=== PATIENT | male | born 1940 | race Caucasian/White ===

== ENCOUNTER 2017-09-22 04:20 | Emergency (ER) | payer MEDICARE ==
[~2017-09-22] VITALS: Ht 182.9 cm; Wt 83.9 kg
[~2017-09-22 04:20] MED LIST: AMLO10 PO; ASPI325; ASPI325 PO; CLOP75 PO; ESOM20 PO; FAMO20 PO; FENO54 PO; FLUV20; IBUP600 PO; ISODIN10 PO; METO100ER PO; METO50ER PO; NITR.4SL SL; OLME20 PO; OXYACE5T PO; RAMI2.5; RAMI5 PO; RANI150 PO; RANO500T PO; ROSU10TA PO; TIOT18 INH; TRAV.004OP OD; UBID100 PO; VITORIN
[2017-09-22 04:37] LABS: BASOPHILS ABSOLUTE AUTO 0.03 K/mm3 (0.00-0.23); BASOPHILS PERCENT AUTO 0 % (0-2); EOSINOPHILS PERCENT AUTO 1 % (0-6); Hematocrit 45.9 % (37.0-53.0); Hemoglobin 15.8 g/dL (13.5-17.5); IMMATURE GRAN ABSOLUTE AUTO 0.04 K/mm3 (0.00-0.10); IMMATURE GRAN PERCENT AUTO 0 % (0-1); LYMPHOCYTES ABSOLUTE AUTO 2.08 K/mm3 (0.84-5.20); LYMPHOCYTES PERCENT AUTO 22 % (21-46); MONOCYTES ABSOLUTE AUTO 0.87 K/mm3 (0.16-1.47); MONOCYTES PERCENT AUTO 9 % (4-13); Mean Corpuscular HGB 30.3 pg (26.0-34.0); Mean Corpuscular HGB Conc 34.4 g/dL (31.5-36.5); Mean Corpuscular Volume 88 fL (80-100); Mean Platelet Volume 9.6 fL (9.1-12.4); NEUTROPHILS PERCENT AUTO 67 % (41-73); Platelet Count 252 K/mm3 (150-400); RDW Coefficient Variation 13.2 % (11.7-14.2); RDW Standard Deviation 42.6 fL (35.1-46.3); Red Blood Cell Count 5.21 M/mm3 (4.30-5.90); White Blood Cell Count 9.52 K/mm3 (4.00-11.30)
[2017-09-22] MEDS ORDERED: ASPI81CH (04:41)
[2017-09-22 04:59] LABS: Alanine Aminotransfer (ALT/SGP 35 U/L (12-78); Albumin, Blood 3.5 g/dL (3.4-5.0); Albumin/Globulin Ratio 1.1 (0.8-1.8); Alk Phos 47 U/L (50-136); Anion Gap 7 mmol/L (6-16); Aspartate Aminotrans (AST/SGOT 20 U/L (12-37); Bilirubin, Total 0.4 mg/dL (0.1-1.0); Blood Urea Nitrogen 13 mg/dL (8-24); Bun/Creatinine Ratio 13.3 (12.0-20.0); CO2, Blood 26 mmol/L (21-32); Calcium, Blood 8.6 mg/dL (8.5-10.1); Chloride, Blood 107 mmol/L (98-108); Creatinine, Blood 0.98 mg/dL (0.60-1.20); Globulin, Blood 3.3 g/dL (2.2-4.0); Glomerular Filtration Rate >60 (60-); Glucose, Blood 113 mg/dL (70-99); Potassium, Blood 4.1 mmol/L (3.5-5.5); Sodium, Blood 140 mmol/L (136-145); Total Protein, Blood 6.8 g/dL (6.4-8.2); Troponin I <0.015 ng/mL (0.000-0.040)
== END 2017-09-22 08:46 | disposition home or self-care (01) ==
LOC: ER 04:20
PROVIDERS: Emergency Medicine
DX: R07.2 Precordial pain (principal); I25.10 Atherosclerotic heart disease of native coronary artery without angina pectoris; Z88.5 Allergy status to narcotic agent; Z79.899 Other long term (current) drug therapy; Z79.82 Long term (current) use of aspirin; I25.2 Old myocardial infarction; Z87.891 Personal history of nicotine dependence
CPT/HCPCS: 71046; 80053; 83690; 84484; 85025; 99283

== ENCOUNTER → 2017-11-25 | Outpatient (CLI) | payer MEDICARE ==
[~2017-11-25] MED LIST changes: +ASPI81CH
== END ==
LOC: PLD 10:09 → LAB SHORT 10:09
DX: D48.5 Neoplasm of uncertain behavior of skin (principal)
CPT/HCPCS: 88305

== ENCOUNTER → 2018-07-07 | Outpatient (CLI) | payer MEDICARE ==
[~2018-07-07] MED LIST changes: +ASPI325EC PO; -ASPI81CH; +ASPI81CH PO; +DOCU100 PO; +ISOMON20 PO; +Isosorbide Mono60 MG PO; +ROXICODONE5 MG PO
== END | disposition home or self-care (01) ==
LOC: PLD 10:22 → LAB SHORT 10:22
DX: C44.41 Basal cell carcinoma of skin of scalp and neck (principal)
CPT/HCPCS: 88305

== ENCOUNTER → 2018-07-28 | Outpatient (CLI) | payer MEDICARE | END | disposition home or self-care (01) | LOC: PLD 14:23 → LAB SHORT 14:23 | DX: C44.41 Basal cell carcinoma of skin of scalp and neck (principal) | CPT/HCPCS: 88305 ==

== ENCOUNTER 2019-06-16 07:37 | Day surgery (SDC) | payer MEDICARE ==
[~2019-06-16] VITALS: Ht 182.9 cm; Wt 88.2 kg
[~2019-06-16 07:37] MED LIST changes: +AMLODIPINE BESY10 MG PO; +Aspirin EC81 MG PO; +Benicar40 MG PO; +COENZYME Q10100 MG PO; +Crestor40 MG PO; +Isosorbide Mono30 MG PO
[2019-06-16] MEDS ORDERED: OLME20 (08:10)
== END 2019-06-16 09:58 | disposition home or self-care (01) ==
LOC: ORSCSDS 07:37
PROVIDERS: Podiatrist Foot & Ankle Surgery
PROC: 0JNQ0ZZ Release Right Foot Subcutaneous Tissue and Fascia, Open Approach (ICD-10-PCS; principal; 2019-06-16 09:00)
DX: M72.2 Plantar fascial fibromatosis (principal); I10 Essential (primary) hypertension; I25.10 Atherosclerotic heart disease of native coronary artery without angina pectoris; J44.9 Chronic obstructive pulmonary disease, unspecified; I25.2 Old myocardial infarction; Z87.891 Personal history of nicotine dependence; K21.9 Gastro-esophageal reflux disease without esophagitis; Z79.899 Other long term (current) drug therapy
CPT/HCPCS: J0171; J0690; J2250; J3010; J7120

== ENCOUNTER → 2019-07-08 | Outpatient (CLI) | payer MEDICARE ==
[~2019-07-08] MED LIST changes: +OLME20
[2019-07-11 06:20] LABS: Stool Occult Bld Immuno 1 Negative (NEGATIVE); Stool Occult Bld Immuno 2 Negative (NEGATIVE)
== END | disposition home or self-care (01) ==
LOC: LAB SHORT 18:35 → LAB 18:35 → LAB FUT 06-23 14:20
PROVIDERS: Internal Medicine Gastroenterology
DX: Z12.11 Encounter for screening for malignant neoplasm of colon (principal); K57.30 Diverticulosis of large intestine without perforation or abscess without bleeding
CPT/HCPCS: G0328

== ENCOUNTER → 2019-07-11 | Outpatient (CLI) | payer MEDICARE | END | disposition home or self-care (01) | LOC: PLD 11:37 → LAB SHORT 11:37 | DX: C44.41 Basal cell carcinoma of skin of scalp and neck (principal); B07.9 Viral wart, unspecified | CPT/HCPCS: 88305 ==

== ENCOUNTER → 2019-07-31 | Outpatient (CLI) | payer MEDICARE | END | disposition home or self-care (01) | LOC: PLD 08:47 → LAB SHORT 08:47 | DX: C44.41 Basal cell carcinoma of skin of scalp and neck (principal) | CPT/HCPCS: 88305 ==

== ENCOUNTER → 2019-10-03 | Outpatient (CLI) | payer MEDICARE | END | disposition home or self-care (01) | LOC: PLD 11:59 → LAB SHORT 11:59 | DX: B00.1 Herpesviral vesicular dermatitis (principal) | CPT/HCPCS: 88305 ==

== ENCOUNTER 2020-11-10 04:43 | Inpatient (IN) | payer MEDICARE ==
[~2020-11-10] VITALS: Ht 182.9 cm; Wt 84.0 kg
[~2020-11-10 04:43] MED LIST changes: +AMOCLA875 PO; +VALSARTAN80 MG PO
[2020-11-10 05:21] LABS: BASOPHILS ABSOLUTE AUTO 0.03 K/mm3 (0.00-0.23); BASOPHILS PERCENT AUTO 0 % (0-2); EOSINOPHILS PERCENT AUTO 0 % (0-6); Hematocrit 41.6 % (37.0-53.0); Hemoglobin 14.6 g/dL (13.5-17.5); IMMATURE GRAN ABSOLUTE AUTO 0.09 K/mm3 (0.00-0.10); IMMATURE GRAN PERCENT AUTO 1 % (0-1); LYMPHOCYTES ABSOLUTE AUTO 0.94 K/mm3 (0.84-5.20); LYMPHOCYTES PERCENT AUTO 7 % (21-46); MONOCYTES ABSOLUTE AUTO 1.21 K/mm3 (0.16-1.47); MONOCYTES PERCENT AUTO 8 % (4-13); Mean Corpuscular HGB 29.9 pg (26.0-34.0); Mean Corpuscular HGB Conc 35.1 g/dL (31.5-36.5); Mean Corpuscular Volume 85 fL (80-100); Mean Platelet Volume 10.5 fL (9.1-12.4); NEUTROPHILS PERCENT AUTO 84 % (41-73); Platelet Count 267 K/mm3 (150-400); RDW Coefficient Variation 12.5 % (11.7-14.2); RDW Standard Deviation 38.9 fL (35.1-46.3); Red Blood Cell Count 4.88 M/mm3 (4.30-5.90); White Blood Cell Count 14.57 K/mm3 (4.00-11.30)
[2020-11-10 05:48] LABS: Alanine Aminotransfer (ALT/SGP 35 U/L (12-78); Albumin, Blood 2.7 g/dL (3.4-5.0); Albumin/Globulin Ratio 0.7 (0.8-1.8); Alk Phos 68 U/L (50-136); Anion Gap 8 mmol/L (6-16); Aspartate Aminotrans (AST/SGOT 27 U/L (12-37); Bilirubin, Total 0.8 mg/dL (0.1-1.0); Blood Urea Nitrogen 17 mg/dL (8-24); Bun/Creatinine Ratio 17.7 (12.0-20.0); CO2, Blood 22 mmol/L (21-32); Calcium, Blood 8.2 mg/dL (8.5-10.1); Chloride, Blood 103 mmol/L (98-108); Creatinine, Blood 0.96 mg/dL (0.60-1.20); Glomerular Filtration Rate >60 (60-); Glucose, Blood 148 mg/dL (70-99); Potassium, Blood 3.6 mmol/L (3.5-5.5); Sodium, Blood 133 mmol/L (136-145); Total Protein, Blood 6.7 g/dL (6.4-8.2)
[2020-11-10 06:10] LABS: SARS-Cov-2 (COVID-19) PCR, MMC NEGATIVE (NEGATIVE)
[2020-11-10 07:15] LABS: Source, Urine Voided
[2020-11-10 07:17] LABS: Appearance, Urine Clear (Clear); Bilirubin, Urine Neg (Neg); Blood, Urine 2+ (Neg); Color, Urine Yellow (P-Yellow); Glucose Qualitative, Urine Neg (Neg); Ketones, Urine Neg (Neg); Leukocyte Esterase, Urine Neg (Neg); Nitrite, Urine Neg (Neg); Protein, Urine 2+ (Neg); Urobilinogen, Urine 3+ (Normal)
[2020-11-10 07:31] LABS: Bacteria Not Seen /hpf; Red Blood Cells, Urine 0-2 /hpf (0-2); Squamous Epithelial Cells Few /hpf (Few); White Blood Cells, Urine 0-2 /hpf (0-5)
--- NOTE | 2020-11-10 18:04 | NUR ---
SHIFT SUMMARY PATIENT ADMITTED TO THE FLOOR EARLY THIS SHIFT. PATIENT ALERT AND ORIENTED, INDEPENDENT IN THE ROOM. PATIENT REPORTS ONLY OCCASIONAL MINOR CHEST PAIN THIS SHIFT. PATIENT ON MULTIPLE ANTIBIOTICS FOR PNEUMONIA. PATIENT BECOMES SHORT OF BREATH WITH ACTIVITY. PATIENT SLEPT MUCH OF THIS SHIFT, AFTER ARRIVING TO THE ER EARLY IN THE MORNING. PATIENT'S IN THE ROOM AT ADMISSION, THEN AGAIN DURING VISITING HOURS THIS AFTERNOON. PATIENT CONTINUES TO DENY CHEST PAIN AT THIS TIME. PATIENT CURRENTLY SITTING UP EATING DINNER.
--- NOTE | 2020-11-10 19:34 | NUR ---
AWAKE. LAYING IN BED. COOPERATIVE. CALL LIGHT IN REACH
--- NOTE | 2020-11-11 03:46 | NUR ---
EXPLOSIVES ENGINEER SUMMARY RECEIVED TYLENOL PO FOR FEVER AND HEADACHE AT , MED EFFECTIVE, BOTH WITH THE FEVER AND WITH THE HEADACHE WELL. CURRENTLY RESTING QUIETLY WITHOUT VOICED CHEST PAIN. NO NOTED S/S DISTRESS OF THIS WRITING, WILL CONTINUE TO MONITOR. CALL LIGHT IN REACH. MED TELE SINUS RHYTHM WITH PACS.
[2020-11-11 05:48] LABS: BASOPHILS ABSOLUTE AUTO 0.02 K/mm3 (0.00-0.23); BASOPHILS PERCENT AUTO 0 % (0-2); EOSINOPHILS ABSOLUTE AUTO 0.01 K/mm3 (0.00-0.68); EOSINOPHILS PERCENT AUTO 0 % (0-6); Hematocrit 39.7 % (37.0-53.0); IMMATURE GRAN ABSOLUTE AUTO 0.07 K/mm3 (0.00-0.10); IMMATURE GRAN PERCENT AUTO 1 % (0-1); LYMPHOCYTES ABSOLUTE AUTO 1.07 K/mm3 (0.84-5.20); LYMPHOCYTES PERCENT AUTO 8 % (21-46); MONOCYTES ABSOLUTE AUTO 1.24 K/mm3 (0.16-1.47); MONOCYTES PERCENT AUTO 10 % (4-13); Mean Corpuscular HGB Conc 35.3 g/dL (31.5-36.5); Mean Corpuscular Volume 85 fL (80-100); Mean Platelet Volume 10.9 fL (9.1-12.4); NEUTROPHILS ABSOLUTE AUTO 10.62 K/mm3 (1.96-9.15); NEUTROPHILS PERCENT AUTO 82 % (41-73); Platelet Count 281 K/mm3 (150-400); RDW Coefficient Variation 12.6 % (11.7-14.2); RDW Standard Deviation 39.4 fL (35.1-46.3); Red Blood Cell Count 4.66 M/mm3 (4.30-5.90); White Blood Cell Count 13.03 K/mm3 (4.00-11.30)
[2020-11-11 05:59] LABS: Anion Gap 9 mmol/L (6-16); Blood Urea Nitrogen 15 mg/dL (8-24); Bun/Creatinine Ratio 16.3 (12.0-20.0); CO2, Blood 22 mmol/L (21-32); Calcium, Blood 8.1 mg/dL (8.5-10.1); Chloride, Blood 105 mmol/L (98-108); Creatinine, Blood 0.92 mg/dL (0.60-1.20); Glomerular Filtration Rate >60 (60-); Glucose, Blood 116 mg/dL (70-99); Sodium, Blood 136 mmol/L (136-145)
--- NOTE | 2020-11-11 18:33 | NUR ---
up moving in room, using calllight appropriatly to let staff know needs and ask for assistance, ebonie campbell dr in to assess, ls remain diminished abx infused with no s/sx of infection or infiltration in new iv started on l arm, will continue to nonitor and treat until share bsr with nurse and pt
--- NOTE | 2020-11-12 04:43 | NUR ---
SHIFT SUMMARY PATIENT FOUND TO BE A PLEASANT GENTLEMAN WHO IS A&OX4. NO PAIN OR DISTRESS NOTED UPON ASSESSMENT. FEELS MUCH BETTER THAN DAY BEFORE PER REPORT. AFEBRILE. TECHINAL DIFFICULTIES WITH TELE BOX BUT NSR IN THE 80'S MOST OF SHIFT. VSS. ON RA. UP IND IN ROOM AND VOIDING WITHOUT ISSUE. TOLERATING CARDIAC DIET. STATES HE IS READY TO GO HOME. NO CONCERNS AT THIS TIME. WILL CONTINUE TO MONITOR UNTIL REPORT GIVEN TO EV RN.
[2020-11-12] MEDS ORDERED: Acetaminophen325 M1 PO (09:28)
[2020-11-12] MEDS ORDERED: AZIT250 PO (09:29)
[2020-11-12] MEDS ORDERED: CEFP200 PO (09:30)
--- NOTE | 2020-11-12 12:29 | NUR ---
PATIENT DISCHARGED TO HOME WITH SPOUSE. IV SALINE LOCK AND TELEMETRY REMOVED WITHOUT INCIDENT. VERBALIZED UNDERSTANDING OF D/C INSTRUCTIONS, GIVEN PRINTED EDUCATION ABOUT NEW MEDICATIONS, DISCUSSED HOLD PARAMETERS FOR BP MEDS. OFF UNIT VIA W/C AT 1033 WITH FAMILY. NO BELONGINGS LEFT BEHIND IN ROOM.
== END 2020-11-12 10:33 | disposition home or self-care (01) | DRG 871 ==
LOC: ER 04:43 → MEDS 07:57
PROVIDERS: Emergency Medicine; ADMIT Internal Medicine
DX: A41.9 Sepsis, unspecified organism (principal); J18.9 Pneumonia, unspecified organism; E87.1 Hypo-osmolality and hyponatremia; J90 Pleural effusion, not elsewhere classified; I25.10 Atherosclerotic heart disease of native coronary artery without angina pectoris; Z20.822 Contact with and (suspected) exposure to COVID-19; Z96.652 Presence of left artificial knee joint; Z88.5 Allergy status to narcotic agent; I25.2 Old myocardial infarction; Z90.79 Acquired absence of other genital organ(s); Z98.890 Other specified postprocedural states; Z95.828 Presence of other vascular implants and grafts; Z98.41 Cataract extraction status, right eye; Z87.891 Personal history of nicotine dependence; Z79.82 Long term (current) use of aspirin; Z79.899 Other long term (current) drug therapy
CPT/HCPCS: 36415; 71045; 71046; 71260; 80048; 80053; 81001; 83605; 84145; 84484; 85025; 87040; 93005; 93010; 96365; 96366; 96367; 99285-25; A9270; J0696; J1650; J2543; J3370; J7050; Q9967; U0004

== ENCOUNTER → 2021-07-03 | Outpatient (CLI) | payer MEDICARE ==
[~2021-07-03] MED LIST changes: +AZIT250 PO; +Acetaminophen325 M1 PO; +CEFP200 PO
== END | disposition home or self-care (01) ==
LOC: LAB 11:24 → LAB SHORT 11:24 → PLD 11:24
DX: L30.8 Other specified dermatitis (principal)
CPT/HCPCS: 88305

== ENCOUNTER → 2021-08-21 | Outpatient (CLI) | payer MEDICARE | END | disposition home or self-care (01) | LOC: LAB SHORT 11:10 → LAB 11:10 | DX: C44.41 Basal cell carcinoma of skin of scalp and neck (principal); C44.212 Basal cell carcinoma of skin of right ear and external auricular canal | CPT/HCPCS: 88305 ==

== ENCOUNTER 2021-09-04 08:38 | Emergency (ER) | payer MEDICARE ==
[~2021-09-04] VITALS: Ht 182.9 cm; Wt 83.5 kg
[2021-09-04 09:00] LABS: BASOPHILS ABSOLUTE AUTO 0.04 K/mm3 (0.00-0.23); BASOPHILS PERCENT AUTO 1 % (0-2); EOSINOPHILS ABSOLUTE AUTO 0.12 K/mm3 (0.00-0.68); EOSINOPHILS PERCENT AUTO 2 % (0-6); Hematocrit 46.7 % (37.0-53.0); Hemoglobin 15.5 g/dL (13.5-17.5); IMMATURE GRAN ABSOLUTE AUTO 0.01 K/mm3 (0.00-0.10); IMMATURE GRAN PERCENT AUTO 0 % (0-1); LYMPHOCYTES PERCENT AUTO 26 % (21-46); MONOCYTES ABSOLUTE AUTO 0.71 K/mm3 (0.16-1.47); MONOCYTES PERCENT AUTO 9 % (4-13); Mean Corpuscular HGB 29.4 pg (26.0-34.0); Mean Corpuscular HGB Conc 33.2 g/dL (31.5-36.5); Mean Corpuscular Volume 89 fL (80-100); Mean Platelet Volume 9.7 fL (9.1-12.4); NEUTROPHILS ABSOLUTE AUTO 4.77 K/mm3 (1.96-9.15); NEUTROPHILS PERCENT AUTO 62 % (41-73); Platelet Count 278 K/mm3 (150-400); RDW Coefficient Variation 13.1 % (11.7-14.2); RDW Standard Deviation 42.7 fL (35.1-46.3); Red Blood Cell Count 5.27 M/mm3 (4.30-5.90); White Blood Cell Count 7.65 K/mm3 (4.00-11.30)
[2021-09-04 09:15] LABS: International Normalized Ratio 1.02; Prothrombin Time Results 10.7 Sec (9.7-11.5)
[2021-09-04 09:28] LABS: Alanine Aminotransfer (ALT/SGP 26 U/L (12-78); Albumin, Blood 3.5 g/dL (3.4-5.0); Alk Phos 47 U/L (50-136); Anion Gap 8 mmol/L (6-16); Aspartate Aminotrans (AST/SGOT 26 U/L (12-37); Bilirubin, Total 0.7 mg/dL (0.1-1.0); Blood Urea Nitrogen 14 mg/dL (8-24); Bun/Creatinine Ratio 16.7 (12.0-20.0); CO2, Blood 23 mmol/L (21-32); Calcium, Blood 8.8 mg/dL (8.5-10.1); Chloride, Blood 109 mmol/L (98-108); Creatinine, Blood 0.84 mg/dL (0.60-1.20); Globulin, Blood 3.5 g/dL (2.2-4.0); Glomerular Filtration Rate >60 (60-); Glucose, Blood 119 mg/dL (70-99); Potassium, Blood 3.9 mmol/L (3.5-5.5); Sodium, Blood 140 mmol/L (136-145)
[2021-09-04] MEDS ORDERED: COQ-10100 MG PO (10:36)
[2021-09-04] MEDS ORDERED: ESOM20 PO (10:37)
[2021-09-04] MEDS ORDERED: ANORO ELLIPTA1 EACH INH (10:37)
== END 2021-09-04 12:05 | disposition home or self-care (01) ==
LOC: ER 08:38
PROVIDERS: Physician Assistant
DX: R07.2 Precordial pain (principal); Z88.5 Allergy status to narcotic agent; Z79.899 Other long term (current) drug therapy; Z79.82 Long term (current) use of aspirin; I25.2 Old myocardial infarction; Z87.891 Personal history of nicotine dependence
CPT/HCPCS: 36415; 71046; 80053; 83690; 84484; 85025; 85610; 93005; 93010; 99285-25; A9270

== ENCOUNTER → 2021-10-07 | Outpatient (CLI) | payer MEDICARE ==
[~2021-10-07] MED LIST changes: +ANORO ELLIPTA1 EACH INH; +COQ-10100 MG PO
== END | disposition home or self-care (01) ==
LOC: LAB SHORT 11:18 → PLD 11:18
DX: C44.311 Basal cell carcinoma of skin of nose (principal)
CPT/HCPCS: 88305

== ENCOUNTER → 2022-04-27 | Outpatient (CLI) | payer MEDICARE | END | disposition home or self-care (01) | LOC: LAB SHORT 11:33 | DX: C44.41 Basal cell carcinoma of skin of scalp and neck (principal) | CPT/HCPCS: 88305 ==

== ENCOUNTER → 2022-11-23 | Outpatient (CLI) | payer MEDICARE | END | disposition home or self-care (01) | LOC: PLD 12:09 → LAB SHORT 12:09 | DX: D04.62 Carcinoma in situ of skin of left upper limb, including shoulder (principal); C44.41 Basal cell carcinoma of skin of scalp and neck | CPT/HCPCS: 88305 ==

== ENCOUNTER 2023-03-15 10:40 | Day surgery (SDC) | payer MEDICARE ==
[~2023-03-15] VITALS: Ht 182.9 cm; Wt 84.5 kg
[2023-03-15 15:29] VITALS: BP 126/73
--- NOTE | 2023-03-15 15:54 | NUR ---
03/15/23 1554 Isabela Andrews IV D/C'D WITH CATH TIP INTACT. SITE WNL, NO SWELLING OR BRUSING.
== END 2023-03-15 15:54 | disposition home or self-care (01) ==
LOC: ORSCSDS 10:40
PROVIDERS: Podiatrist Foot & Ankle Surgery
PROC: 0SGH04Z Fusion of Right Tarsal Joint with Internal Fixation Device, Open Approach (ICD-10-PCS; principal; 2023-03-15 12:00)
DX: M21.41 Flat foot [pes planus] (acquired), right foot (principal); M19.071 Primary osteoarthritis, right ankle and foot; I10 Essential (primary) hypertension; I25.10 Atherosclerotic heart disease of native coronary artery without angina pectoris; J44.9 Chronic obstructive pulmonary disease, unspecified; K21.9 Gastro-esophageal reflux disease without esophagitis; Z79.899 Other long term (current) drug therapy; Z79.82 Long term (current) use of aspirin
CPT/HCPCS: A9270; C1713; C1734; C1769; J0690; J1100; J1885; J2405; J2704; J3010; J7120

== ENCOUNTER → 2023-05-25 | Outpatient (CLI) | payer MEDICARE | END | disposition home or self-care (01) | LOC: LAB SHORT 11:29 → LAB 11:29 | DX: C44.212 Basal cell carcinoma of skin of right ear and external auricular canal (principal) | CPT/HCPCS: 88305 ==

== ENCOUNTER → 2023-07-01 | Outpatient (CLI) | payer MEDICARE | LOC: LAB SHORT 14:31 → LAB 14:31 | DX: C44.212 Basal cell carcinoma of skin of right ear and external auricular canal (principal) | CPT/HCPCS: 88305 ==

== ENCOUNTER → 2023-07-01 | Emergency (ER) | payer MEDICARE ==
[~2023-07-01] VITALS: Ht 182.9 cm; Wt 84.8 kg
[2023-07-01 17:22] VITALS: BP 170/89
== END ==
LOC: ER 17:06
DX: L76.21 Postprocedural hemorrhage of skin and subcutaneous tissue following a dermatologic procedure (principal); Z88.5 Allergy status to narcotic agent; Z79.899 Other long term (current) drug therapy; Z79.82 Long term (current) use of aspirin; I25.2 Old myocardial infarction; Z87.891 Personal history of nicotine dependence
CPT/HCPCS: 99282

== ENCOUNTER 2023-07-03 15:08 | Emergency (ER) | payer MEDICARE ==
[~2023-07-03] VITALS: Ht 182.9 cm; Wt 83.9 kg
[2023-07-03 15:43] VITALS: BP 165/79
== END 2023-07-03 17:01 | disposition home or self-care (01) ==
LOC: ER 15:08
DX: Z48.817 Encounter for surgical aftercare following surgery on the skin and subcutaneous tissue (principal); Z85.828 Personal history of other malignant neoplasm of skin; Z87.891 Personal history of nicotine dependence; I25.2 Old myocardial infarction; Z79.82 Long term (current) use of aspirin; Z79.899 Other long term (current) drug therapy; Z88.5 Allergy status to narcotic agent
CPT/HCPCS: 99282

== ENCOUNTER → 2023-10-05 | Outpatient (CLI) | payer MEDICARE | END | disposition home or self-care (01) | LOC: LAB 08:04 → LAB SHORT 08:04 | DX: D04.39 Carcinoma in situ of skin of other parts of face (principal) ==

== ENCOUNTER 2024-12-11 09:04 | Day surgery (SDC) | payer MEDICARE ==
[~2024-12-11] VITALS: Ht 182.9 cm; Wt 81.2 kg
[2024-12-11] MEDS ORDERED: FentaNYL Citrate 50 MCG/ML 2 ML Injection ONE ×2 (09:05→11:26)
[2024-12-11] MEDS ORDERED: NITROGLYCERIN0.4 M3 (09:36)
[2024-12-11] MEDS ORDERED: ISOSORBIDE MONO30 MG PO (09:36)
[2024-12-11] MEDS ORDERED: VALS80 (09:37)
[2024-12-11] MEDS ORDERED: ROSUVASTATIN CA40 MG PO (09:37)
[2024-12-11] MEDS ORDERED: VITAMIN D325 MC3 (09:38)
[2024-12-11] MEDS ORDERED: CeFAZolin Sodium 2,000 MG VIAL ONE (09:46)
--- NOTE | 2024-12-11 10:05 | NUR ---
12[facility]11[facility]24 [facility] [place] DR SHARMA NOTIFIED THAT PATIENT LAST TOOK HIS ASPIRIN LAST NIGHT AT 1800, NO NEW ORDERS RECEIVED.
[2024-12-11] MEDS ORDERED: Bupivacaine 0.5% W/EPI 1:200000 SDV 30 ML Vial ONE (10:33)
[2024-12-11] MEDS ORDERED: Glycopyrrolate 0.2 MG/ML 5ML VIAL ONE (10:55)
[2024-12-11] MEDS ORDERED: ePHEDrine Sulfate 50 MG/ML 1ML Injection ONE (10:58)
[2024-12-11] MEDS ORDERED: Ondansetron HCl 2 MG / ML 2ML Vial ONE (11:12)
[2024-12-11] MEDS ORDERED: Dexamethasone Sod Phos 10 MG/ML 1ML VIAL ONE (11:12)
[2024-12-11 12:41] VITALS: BP 148/80
== END 2024-12-11 12:37 | disposition home or self-care (01) ==
LOC: ORSCSDS 09:04
PROVIDERS: Orthopaedic Surgery
PROC: 0SBC4ZZ Excision of Right Knee Joint, Percutaneous Endoscopic Approach (ICD-10-PCS; principal; 2024-12-11 10:40)
DX: S83.241A Other tear of medial meniscus, current injury, right knee, initial encounter (principal); S83.281A Other tear of lateral meniscus, current injury, right knee, initial encounter; I10 Essential (primary) hypertension; I25.2 Old myocardial infarction; I25.10 Atherosclerotic heart disease of native coronary artery without angina pectoris; E78.5 Hyperlipidemia, unspecified; J44.9 Chronic obstructive pulmonary disease, unspecified; F17.210 Nicotine dependence, cigarettes, uncomplicated; K21.9 Gastro-esophageal reflux disease without esophagitis; Z79.899 Other long term (current) drug therapy; Z79.02 Long term (current) use of antithrombotics/antiplatelets
CPT/HCPCS: J0165; J0690; J1100; J2405; J2704; J3010; J7120

== ENCOUNTER 2024-12-26 09:27 | Emergency (ER) | payer MEDICARE ==
[~2024-12-26] VITALS: Ht 182.9 cm; Wt 81.2 kg
[~2024-12-26 09:27] MED LIST changes: +ISOSORBIDE MONO30 MG PO; +NITROGLYCERIN0.4 M3; +ROSUVASTATIN CA40 MG PO; +VALS80; +VITAMIN D325 MC3
[2024-12-26 09:36] VITALS: BP 152/84
== END 2024-12-26 10:38 | disposition home or self-care (01) ==
LOC: ER 09:27
DX: S51.812A Laceration without foreign body of left forearm, initial encounter (principal); Z88.5 Allergy status to narcotic agent; Z79.899 Other long term (current) drug therapy; Z79.82 Long term (current) use of aspirin; Z87.891 Personal history of nicotine dependence; W01.198A Fall on same level from slipping, tripping and stumbling with subsequent striking against other object, initial encounter; Y92.480 Sidewalk as the place of occurrence of the external cause
CPT/HCPCS: 99282

== ENCOUNTER 2025-04-04 11:05 | Day surgery (SDC) | payer MEDICARE ==
[~2025-04-04] VITALS: Ht 178 cm; Wt 77.7 kg
[2025-04-04] VITALS (12 sets, daily range): BP systolic 105–161; BP diastolic 49–85
[~2025-04-04 11:05] MED LIST changes: -NITROGLYCERIN0.4 M3; -VALS80; +VALS80 PO; -VITAMIN D325 MC3; +VITAMIN D325 MC3 PO
[2025-04-04] MEDS ORDERED: Chlorhexidine Mouth Care 15 ML UDC MT SCH (11:50)
[2025-04-04] MEDS ORDERED: Tranexamic Acid 100 ML IV SCH (11:50)
[2025-04-04] MEDS ORDERED: Ropivacaine 0.5% HCl/Pf 123.125 MG,EPINEPHrine HCL 0.25 MG,Ketorolac Tromethamine 15 MG... INFIL SCH (11:50)
[2025-04-04] MEDS ORDERED: CeFAZolin Sodium 2,000 MG in NS 100 ML IV SCH ×2 (11:50→22:30)
[2025-04-04] MEDS ORDERED: Ondansetron HCl 2 MG / ML 2ML Vial ONE (12:27)
[2025-04-04] MEDS ORDERED: Rocuronium Bromide 10 MG/ML 5ML Injection IV ONE ×2 (12:27→14:59)
[2025-04-04] MEDS ORDERED: Dexamethasone Sod Phos 10 MG/ML 1ML VIAL ONE (12:27)
[2025-04-04] MEDS ORDERED: FentaNYL Citrate 50 MCG/ML 2 ML Injection ONE ×2 (12:27→18:02)
[2025-04-04] MEDS ORDERED: Magnesium Hydroxide Conc 10 ML UDC PO PRN (13:35)
[2025-04-04] MEDS ORDERED: Ondansetron HCl 2 MG / ML 2ML Vial IV PRN (13:35)
[2025-04-04] MEDS ORDERED: Metoclopramide HCl 5MG / ML 2ML Vial IV PRN (13:40)
[2025-04-04] MEDS ORDERED: Prochlorperazine Edisylate 10 mg Vial IV PRN (13:40)
[2025-04-04] MEDS ORDERED: HYDROmorphone HCl/Pf 1MG SYR IV PRN (13:50)
[2025-04-04] MEDS ORDERED: Isosorbide Mononitrate 60 MG TABCR PO ONE (14:05)
[2025-04-04] MEDS ORDERED: FLU VACC TS2025(65UP)/MF59C/PF 45 MCG/0.5 ML SYRINGE IM SCH (14:15)
[2025-04-04] MEDS ORDERED: Etomidate 2MG / ML 10ML Vial ONE (14:22)
[2025-04-04] MEDS ORDERED: Phenylephrine HCl 100 MCG/ML-NS 10MLSYR (1MG/10ML) ONE (14:24)
--- NOTE | 2025-04-04 14:24 | NUR ---
Ambulatory in Day Surgery History, Chart, Medications and Allergies reviewed before start of procedure.Patient confirms NPO status and agrees with scheduled surgery. Lungs clear T/O to Auscultation. PATIENT DID NOT TAKE ANY MEDICATIONS THIS AM OTHER THAN NEXIUM. DISCUSSED WITH ANETHESIA. NEW ORDERS RECEIVED AND MEDS GIVEN.
[2025-04-04] MEDS ORDERED: Tiotropium Bromide 2.5 MCG/ACT MIST INHAL (10 ACT/4 GM) INH SCH (14:25)
--- NOTE | 2025-04-04 14:26 | NUR ---
PATIENT REPORTED COMPLETED 5 DAYS WORTH OF MUCIPORIN OINTMENT AND CHOREHEXIDINE SHOWERS PER MD INSTRUCTIONS AT PREOP APPOINTMENT.
[2025-04-04] MEDS ORDERED: ePHEDrine Sulfate 50 MG/ML 1ML Injection ONE (14:51)
[2025-04-04] MEDS ORDERED: Sugammadex Sodium 200 MG/2ML SDV (100 MG/ML) ONE (16:38)
[2025-04-04] MEDS ORDERED: HYDROmorphone HCl/Pf 1MG SYR ONE (16:39)
[2025-04-04] MEDS ORDERED: Ketorolac Tromethamine 30mg Vial ONE (17:53)
[2025-04-04] MEDS ORDERED: Ketorolac Tromethamine 15mg Vial IV SCH (18:00)
[2025-04-04] MEDS ORDERED: ACET500 PO (18:35)
[2025-04-04] MEDS ORDERED: LINE600 PO (18:36)
[2025-04-04] MEDS ORDERED: XARELTO10 M3 PO (18:36)
--- NOTE | 2025-04-04 18:51 | NUR ---
ARRIVAL TO UNIT PT IS A/OX4. AMBULATED TO [facility] SBA. PT ABLE TO FOLLOW PRECAUTIONS W/ VERBAL COMMANDS. SON IN ROOM CALL LIGHT IN REACH.
[2025-04-05] VITALS: BP 119/68
[2025-04-05 02:21] VITALS: BP 130/74
[2025-04-05 03:49] LABS: BASOPHILS ABSOLUTE AUTO 0.01 K/mm3 (0.00-0.23); BASOPHILS PERCENT AUTO 0 % (0-2); EOSINOPHILS ABSOLUTE AUTO 0.01 K/mm3 (0.00-0.68); EOSINOPHILS PERCENT AUTO 0 % (0-6); Hematocrit 35.3 % (37.0-53.0); Hemoglobin 12.1 g/dL (13.5-17.5); IMMATURE GRAN ABSOLUTE AUTO 0.03 K/mm3 (0.00-0.10); IMMATURE GRAN PERCENT AUTO 0 % (0-1); LYMPHOCYTES ABSOLUTE AUTO 0.97 K/mm3 (0.84-5.20); LYMPHOCYTES PERCENT AUTO 8 % (21-46); MONOCYTES ABSOLUTE AUTO 0.55 K/mm3 (0.16-1.47); MONOCYTES PERCENT AUTO 5 % (4-13); Mean Corpuscular HGB Conc 34.3 g/dL (31.5-36.5); Mean Corpuscular Volume 89 fL (80-100); NEUTROPHILS ABSOLUTE AUTO 10.67 K/mm3 (1.96-9.15); NEUTROPHILS PERCENT AUTO 87 % (41-73); NRBC ABSOLUTE 0.00 K/mm3 (0.00-0.02); NRBC Auto 0.0 /100 WBC (0.0-0.2); Platelet Count 218 K/mm3 (150-400); RDW Coefficient Variation 13.6 % (11.7-14.2); RDW Standard Deviation 45.1 fL (35.1-46.3)
[2025-04-05 04:10] LABS: Anion Gap 7.0 mmol/L (3-11); Blood Urea Nitrogen 15.0 mg/dL (8-24); CO2, Blood 28.0 mmol/L (21-32); Calcium, Blood 8.2 mg/dL (8.5-10.1); Chloride, Blood 106.0 mmol/L (98-108); Creatinine, Blood 0.73 mg/dL (0.60-1.20); Glucose, Blood 179.0 mg/dL (70-99); Magnesium, Blood 2.1 mg/dL (1.6-2.4); Potassium, Blood 4.6 mmol/L (3.5-5.5); Sodium, Blood 136.0 mmol/L (136-145)
--- NOTE | 2025-04-05 05:38 | NUR ---
SHIFT SUMMARY NO ACUTE CHANGES TONIGHT. PT IS POD 1 RIGHT TOTAL HIP. DRESSING TO HIP CDI WITH POLAR PACK AND SCDS IN PLACE. PAIN MANAGED PER EMAR. IS OOB TO BATHROOM WITH MIN SBA W/FWW & GB. TOLERATING PO INTAKE, DENIES N.V. ABX INFUSED PER ORDERS. IS A/OX4 WITH VSS. RASH TO UPPER BACK NOTED, PT REPORTS CHRONIC AND DENIES CONCERNS. IV SL AND PATENT. PT CURRENTLY RESTING IN BED WITH RESP EVEN AND UNLABORED. HAS CALL LIGHT IN REACH. PLAN TO WORK WITH THERAPY TODAY AND POSSIBLE D/C. WILL GIVE REPORT TO ONCOMING RN.
--- NOTE | 2025-04-05 06:38 | NUR ---
UPDATE PT TOLERATED WALKING IN HALLWAY WITH FWW/GB/SBA. IS CURRENTLY DRESSED IN BED WHILE EATING AND DRINKING COFFEE. POLAR PACK AND SCDS IN PLACE. HAS CALL LIGHT IN REACH. IS ABLE TO MAKE NEEDS KNOWN.
[2025-04-05 07:04] VITALS: BP 131/61
[2025-04-05] MEDS ORDERED: Cholecalciferol 1000 Unit Tablet (=25MCG) PO SCH (09:00)
[2025-04-05] MEDS ORDERED: Isosorbide Mononitrate 60 MG TABCR PO SCH (09:00)
--- NOTE | 2025-04-05 10:42 | NUR ---
DISCHARGE INSTRUCTION REVIEWED. STATED UNDERSTANDING. SON ENROUTE WITH A TEN MINUTE ETA.
== END 2025-04-05 10:56 | disposition home or self-care (01) ==
LOC: ORSCMMR 11:05 → ORD 14:00 → ORSCMMR 14:00 → SURS 17:59 → ORSCMMR 04-05 10:56
PROVIDERS: Orthopaedic Surgery
PROC: 0SR90JA Replacement of Right Hip Joint with Synthetic Substitute, Uncemented, Open Approach (ICD-10-PCS; principal; 2025-04-04 14:00)
DX: M16.11 Unilateral primary osteoarthritis, right hip (principal); I10 Essential (primary) hypertension; I25.2 Old myocardial infarction; I25.10 Atherosclerotic heart disease of native coronary artery without angina pectoris; E78.5 Hyperlipidemia, unspecified; Z87.891 Personal history of nicotine dependence; J44.9 Chronic obstructive pulmonary disease, unspecified; K21.9 Gastro-esophageal reflux disease without esophagitis; Z79.899 Other long term (current) drug therapy; Z79.82 Long term (current) use of aspirin; Z79.02 Long term (current) use of antithrombotics/antiplatelets; Z85.828 Personal history of other malignant neoplasm of skin
CPT/HCPCS: 36415; 72170; 80048; 83735; 85025; 97110; 97116; 97162; 97165; 97530; 97535; A9270; C1713; C1776; J0166; J0690; J0735; J1100; J1171; J1885; J2371; J2405; J2704; J2795; J3010; J3373; J7050; J7120